=== PATIENT | male | born 1950 | race Caucasian/White ===

== ENCOUNTER 2017-07-16 13:48 | Outpatient (CLI) | payer MEDICARE, OTHER | END 2017-07-16 13:49 | disposition home or self-care (01) | LOC: SC 13:48 | PROVIDERS: ATTEND Internal Medicine Pulmonary Disease | DX: G47.33 Obstructive sleep apnea (adult) (pediatric) (principal) | CPT/HCPCS: 99203; G0463; 99212 ==

== ENCOUNTER 2017-10-06 06:04 | Outpatient (CLI) | payer MEDICARE, OTHER | END 2017-10-06 06:05 | disposition critical access hospital (66) | LOC: EMS 06:04 | PROVIDERS: ATTEND Surgery | DX: R55 Syncope and collapse (principal); R07.9 Chest pain, unspecified; R06.02 Shortness of breath; R53.1 Weakness; S09.93XA Unspecified injury of face, initial encounter; W18.39XA Other fall on same level, initial encounter; Y93.01 Activity, walking, marching and hiking; Y92.009 Unspecified place in unspecified non-institutional (private) residence as the place of occurrence of the external cause | CPT/HCPCS: A0425; A0427 ==

== ENCOUNTER 2017-10-06 06:33 | Emergency (ER) | payer MEDICARE, OTHER ==
[2017-10-06] MEDS ORDERED: IOPAMIDOL-300 100 ML VIAL IVP ONE ×2 (06:34→09:27)
[2017-10-06 07:01] LABS: BASOPHILS # (AUTO) 0.1 10^3/uL (0.0-0.1); BASOPHILS % (AUTO) 0.7 %; EOSINOPHILS # (AUTO) 0.4 10^3/uL (0.0-0.7); EOSINOPHILS % (AUTO) 2.6 %; HGB - HEMOGLOBIN 13.5 g/dL (14.0-18.0); LYMPHOCYTES # (AUTO) 3.8 10^3/uL (1.5-3.5); LYMPHOCYTES % (AUTO) 24.2 %; MEAN CORPUSCULAR HEMOGLOBIN 28.3 pg (27.0-31.0); MEAN CORPUSCULAR HGB CONC 35.8 g/dL (32.0-36.0); MEAN CORPUSCULAR VOLUME 78.9 fL (80.0-94.0); MEAN PLATELET VOLUME 7.1 fL (7.4-11.4); MONOCYTES # (AUTO) 1.1 10^3/uL (0.0-1.0); MONOCYTES % (AUTO) 6.7 %; NEUTROPHILS # (AUTO) 10.5 10^3/uL (1.5-6.6); NEUTROPHILS % (AUTO) 65.8 %; PLT - PLATELET COUNT 229 10^3/uL (130-450); RED BLOOD COUNT 4.79 10^6/uL (4.70-6.10); RED CELL DISTRIBUTION WIDTH 14.1 % (12.0-15.0); WHITE BLOOD COUNT 15.9 x10^3/uL (4.8-10.8)
[2017-10-06] MEDS ORDERED: SODIUM CHLORIDE 0.9% 500 ML IV ONE (07:03)
[2017-10-06] MEDS ORDERED: SODIUM CHLORIDE 0.9% 2,000 ML IV ONE (07:11)
[2017-10-06 07:14] LABS: CALCIUM 8.8 mg/dL (8.5-10.3); CREATININE 1.7 mg/dL (0.6-1.2)
[2017-10-06] MEDS ORDERED: cefTRIAXone 1 GM in SODIUM CHLORIDE 0.9% MINIBAG 100 ML IV STA (07:14)
[2017-10-06] MEDS ORDERED: AZITHROMYCIN INJ 500 MG in SODIUM CHLORIDE 0.9% 250 ML IV STA (07:15)
--- NOTE | 2017-10-06 07:15 | ED Physician Documentation ---
History of Present Illness - Stated complaint Stated Complaint: SYNCOPE - Chief complaint Chief Complaint: Neuro - Additonal information Additional information: hx from [facility] and pt EMS brought pt prior to my shift so i did not hear report and there is no EMS run sheet scanned in to review 67 male pmhx DM gastric bypass HTN HLD sleep apnea ill for a week with a bad cough denies fever chills NVD bloody black BM and urinary sx this AM had to have a BM and was walking to bathroom and felt faint and had a syncopal episode and fell striking his face now has lip lac LARKIN neck pain and chest pain is tachycardic tachypneic hypothermic and hypoxic Review of Systems Constitutional: reports: Fatigue. denies: Fever, Chills Cardiac: reports: Chest pain / pressure. denies: Palpitations Respiratory: reports: Cough. denies: Dyspnea GI: denies: Abdominal Pain, Nausea, Vomiting, Diarrhea, Bloody / black stool : denies: Dysuria Musculoskeletal: reports: Neck pain Neurologic: reports: Generalized weakness, Syncope, Headache, Head injury Endocrine: denies: Easy bruising / bleeding Immunocompromised: denies: Immunocompromised PD PAST MEDICAL HISTORY - Past Medical History Past Medical History: Yes Cardiovascular: Hypertension, High cholesterol Respiratory: None, Sleep apnea, CPAP use Neuro: None Endocrine/Autoimmune: Type 2 diabetes GI: None : None HEENT: None Psych: None Musculoskeletal: None Derm: None - Past Surgical History Past Surgical History: Yes - Allergies Allergies/Adverse Reactions: Allergies Allergy/AdvReac Type Severity Reaction Status Date / Time No Known Drug Allergies Allergy Verified 10/06/17 06:43 - Social History Does the pt smoke?: No Smoking Status: Never smoker Does the pt drink ETOH?: No Does the pt have substance abuse?: No - Immunizations Immunizations are current?: Yes PD ED PE NORMAL - Vitals Vital signs reviewed: Yes - General General: Alert and oriented X 3 - HEENT HEENT: PERRL. 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, No motor deficit Eye Opening: Spontaneous Motor: Obeys Commands Verbal: Oriented GCS Score: 15 Results - Vitals Vitals: Vital Signs - 24 hr 10/06/17 10/06/17 10/06/17 06:36 07:05 08:30 Temperature 35.3 C L Heart Rate 129 H 122 H 120 H Respiratory 25 H 28 H 26 H Rate Blood Pressure 138/125 H 112/69 111/73 O2 Saturation 84 L 98 98 10/06/17 10/06/17 10/06/17 09:16 10:06 10:45 Temperature Heart Rate 117 H 112 H 109 H Respiratory 28 H 28 H 23 Rate Blood Pressure 107/80 116/105 H 92/68 O2 Saturation 98 97 97 10/06/17 10/06/17 10/06/17 11:34 13:13 13:55 Temperature Heart Rate 104 H 100 86 Respiratory 33 H 28 H 22 Rate Blood Pressure 105/78 119/86 H 110/88 H O2 Saturation 100 99 98 Oxygen O2 Source Oxymask - EKG (time done) 0644 Rate: Rate (enter#) (127) Rhythm: Sinus tachycardia (vs junctional) [place]: Normal Intervals: Wide QRS (borderline) Ischemia: Q waves (inf and ant) - Labs Labs: Laboratory Tests 10/06/17 10/06/17 10/06/17 06:50 06:50 06:50 WBC 15.9 H RBC 4.79 Hgb 13.5 L Hct 37.8 L MCV 78.9 L MCH 28.3 MCHC 35.8 RDW 14.1 Plt Count 229 MPV 7.1 L Neut # 10.5 H Lymph # 3.8 H Bullitt # 1.1 H Eos # 0.4 Baso # 0.1 Absolute Nucleated RBC 0.00 Nucleated RBC % 0.0 D-Dimer Sodium 136 Potassium 3.6 Chloride 99 L Carbon Dioxide 19 L Anion Gap 18.0 H BUN 25 H Creatinine 1.7 H Estimated GFR (MDRD) 41 L Glucose 322 H Lactic Acid Calcium 8.8 Troponin I Influenza A (Rapid) Negative Influenza B (Rapid) Negative Influenza Types A,B Ag - 10/06/17 10/06/17 10/06/17 06:50 07:15 08:57 WBC RBC Hgb Hct MCV MCH MCHC RDW Plt Count MPV Neut # Lymph # Bullitt # Eos # Baso # Absolute Nucleated RBC Nucleated RBC % D-Dimer Sodium Potassium Chloride Carbon Dioxide Anion Gap BUN Creatinine Estimated GFR (MDRD) Glucose Lactic Acid 2.9 H Calcium Troponin I 0.11 0.19 Influenza A (Rapid) Influenza B (Rapid) Influenza Types A,B Ag 10/06/17 08:57 WBC RBC Hgb Hct MCV MCH MCHC RDW Plt Count MPV Neut # Lymph # Bullitt # Eos # Baso # Absolute Nucleated RBC Nucleated RBC % D-Dimer > 1050.0 H Sodium Potassium Chloride Carbon Dioxide Anion Gap BUN Creatinine Estimated GFR (MDRD) Glucose Lactic Acid Calcium Troponin I Influenza A (Rapid) Influenza B (Rapid) Influenza Types A,B Ag - Rads (name of study) CXR Radiology: See rad report (no acute infiltrate) echo Radiology: See rad report (no wall motion abn, enlarged thoracic aort to 4 cm incompletely vis, R heart strain, dilated IVC, no pericardial effusion) CT chest non con Radiology: See rad report (no acute chest process, gallstones) CTPA Radiology: See rad report (deotne PE L > R extending to subsegmental arteries, no saddle embolus, per verbal d/w rad re whether pt needed to be transferred rad advises there is R heart strain, + spetal bowing, slight IVC contrast reflux) PD MEDICAL DECISION MAKING - ED course ED course: pt with cough and meeting SIRS/sepsis criteria lactate and blood cx drawn, given 3 L NS, antibiotic to cover resp infection no infiltrate on CXR but pts only recent sx was cough influenza swabs neg but not very sensitive and there is significant local flu right now so also covered with tamiflu neg CXR with profound hypoxia - sx c/w resp infection such as pna or influenza ( so gave antibiotics and sepsis fluids as work up proceeded) - but clinical findings and CXR do not match with syncope and tachycardia as well, consider alt dx such as PE - no asymmetrical leg swelling to suggest DVT to cause PE, GFR to low for CTA, d dimer would not be appropriate in this setting - CT c spine read indicates jugular distension suggesting right heart strain - increasing suspicion for PE - gave lovenox after CTH neg for bleed pt has CVP - EKG tachy but no acute ischemia, trop # 1 0.11 - needs serial trop and echo (to eval for wall motion abn, eval for cause of syncope, look for signs or R heart strain suggesting PE etc) planned admit to ICU hospitalist kiko rpt trop prior to admit despite tx for sepsis, pna, influenza, possible PE pt worsening still tachy BP dropping now now has inc chest pain and back pain as well asymm BPs noted still hypoxic so got bedside echo in ER - shows no regional wall abn, massive R heart strain, hyperdynamic poorly filling LV, dilated IVC . . . . and a partially visualized enlarged thoracic aorta need CTA to determine if pt has a PE - and if he does if he would benefit from thrombectomy or IR TPA (hesitate to give systemic TPA after fall and head injury ) - and also to eval aorta to see if pt has a CT surgery emergency will simply have to get angio despite low GFR in order to dx and direct subsequent care explained to pt risk to kidneys and critical need for the CT to help dx and thus care for him and he understands and will proceed with CTA radiologist called concerned about the CTA contrast - I explained that the pt is critically ill and rapidly worsening despite all my interventions and that the info from the CT is critically important and that I had discussed with the pt the risks and the need and he agreed to proceed - rad recommend mucomyst 600 PO or IV now, [address] and 12 hr s/p CT - asked pharmacist to enter into [employer] for me also discussed emergent need for CTA with who has arrived - explained risk to kidneys, explained what i was doing to try and mitigate that risk, explained that I truly feel the info from the CT is critical to his care - she understands and also agrees to proceed CT does show deonte PE, per verbal d/w rad with the specific purpose of determining if pt needed transfer for thrombectomy, rads advises there is R heart strain with septal bowing and IVC contrast so will need transfer to tertiary care facility with IR drafter cartographic Dr Milner at [facility] accepts pt pt and family updated numerous times Departure - Departure Disposition: 02 Transfer Acute Care Hosp Clinical Impression: Hypoxia Pulmonary emboli Qualifiers: Pulmonary embolism type: other Chronicity: acute Acute cor pulmonale presence: without acute cor pulmonale Qualified Code(s): I26.99 - Other pulmonary embolism without acute cor pulmonale Hypotension Qualifiers: Hypotension type: unspecified hypotension type Qualified Code(s): I95.9 - Hypotension, unspecified Condition: Fair Discharge Date/Time: 10/06/17 13:55
--- NOTE | 2017-10-06 07:45 | XRAY Report ---
EXAM: CHEST RADIOGRAPHY EXAM DATE: 10/06/2017 07:38 AM. CLINICAL HISTORY: Chest pain left sided. COMPARISON: None. TECHNIQUE: 2 views. FINDINGS: Lungs/Pleura: Large volumes. No focal opacities evident. No pneumothorax or pleural effusion. Mediastinum: Within exam limitations, cardiomediastinal contour is normal. Other: Prior cervical surgery. IMPRESSION: Suspect COPD without acute process seen in the chest. [facility] Referring Provider Line: [phone] SITE ID: [id number]
--- NOTE | 2017-10-06 07:56 | CT Report ---
EXAM: CT HEAD EXAM DATE: 10/06/2017 07:47 AM. CLINICAL HISTORY: Syncope fall and head injury. COMPARISON: None. TECHNIQUE: Multiaxial CT images were obtained from the foramen magnum to the vertex. Reformats: Coron al. IV contrast: None. In accordance with CT protocol optimization, one or more of the following dose reduction techniques w ere utilized for this exam: automated exposure control, adjustment of mA and/or KV based on patient s ize, or use of iterative reconstructive technique. FINDINGS: Parenchyma: No intraparenchymal hemorrhage. No evidence of mass, midline shift or CT findings of acut e infarction. Solomon-white differentiation is distinct. Diffuse mild chronic microangiopathic white mat ter changes are evident. Extraaxial Spaces: Normal for age. No subdural or epidural collections identified. Ventricles: The ventricles and cortical sulci are enlarged, consistent with age-related tissue loss. Sinuses: Imaged paranasal sinuses, orbits, and mastoids show no significant abnormality with a septum moderate right maxillary sinus mucosal thickening. Bones: No evidence of fracture or calvarial defect. Other: None. IMPRESSION: 1. Mild senescent changes without evidence of acute intracranial abnormality. 2. Chronic right maxillary sinusitis. [facility] Referring Provider Line: [phone] SITE ID: [id number]
[2017-10-06] MEDS ORDERED: ENOXAPARIN 100 MG/ML SYRINGE SUBQ STA (07:59)
[2017-10-06] MEDS ORDERED: TETANUS/DIPHTHERIA/PERTUSSIS 0.5 ML SYRINGE IM ONE (08:00)
--- NOTE | 2017-10-06 08:00 | CT Preliminary Report ---
Exam: CT CERVICAL SPINE W/O IMPRESSION: 1. No acute abnormality seen in the cervical spine. 2. Previous anterior fusion of C5-C7. 3. Enlarged internal jugular veins raises question of right heart dysfunction. [facility] SITE ID: [id number]
--- NOTE | 2017-10-06 08:00 | CT Report ---
EXAM: CT CERVICAL SPINE WITHOUT CONTRAST DATE: 10/06/2017 07:47 AM. HISTORY: Fall , head injury, neck pain. COMPARISONS: None. TECHNIQUE: Thin-section axial images were acquired of the cervical spine without contrast. Post-proce ssing: Coronal and sagittal reformats. Other: None. In accordance with CT protocol optimization, one or more of the following dose reduction techniques w ere utilized for this exam: automated exposure control, adjustment of mA and/or KV based on patient s ize, or use of iterative reconstructive technique. FINDINGS: Alignment: No scoliosis or spondylolisthesis. Bones: Previous anterior fusion at C5-C7. No fracture or bone lesion. Interspace Levels/Facets: No acute malalignment. Previous anterior fusion at C5-C7. [id number] C4-C5 disk level degenerative changes. Other: The paravertebral and prevertebral soft tissues are unremarkable. The lung apices are clear. L arge jugular veins. IMPRESSION: 1. No acute abnormality seen in the cervical spine. 2. Previous anterior fusion of C5-C7. 3. Enlarged internal jugular veins raises question of right heart dysfunction. [facility] Referring Provider Line: [phone] SITE ID: [id number]
[2017-10-06] MEDS ORDERED: SODIUM CHLORIDE 0.9% 1,000 ML IV ONE (08:09)
[2017-10-06] MEDS ORDERED: OSELTAMIVIR 75 MG CAPSULE PO STA (08:12)
[2017-10-06] MEDS ORDERED: ONDANSETRON 4 MG/2 ML VIAL IVP STA (08:44)
[2017-10-06] MEDS ORDERED: MORPHINE 2 MG/ML CARPUJECT IVP STA (08:44)
[2017-10-06] MEDS ORDERED: DEXTROSE 5% IV STA (09:16)
[2017-10-06] MEDS ORDERED: ACETYLCYSTEINE IV STA (09:16)
[2017-10-06] MEDS: ENOXAPARIN 100 MG/ML SYRINGE SUBQ STA ×2 (09:19→09:27)
[2017-10-06] MEDS ORDERED: IOPAMIDOL-300 100 ML VIAL ONE (09:19)
--- NOTE | 2017-10-06 09:32 | CT Report ---
EXAM: CT CHEST EXAM DATE: 10/06/2017 08:21 AM. CLINICAL HISTORY: Chest pain. Cough. Hypoxia. COMPARISONS: chest x-ray from earlier today. TECHNIQUE: Routine helical CT imaging was performed through the chest. IV contrast: None. Reconstruct ions: Coronal and sagittal. In accordance with CT protocol optimization, one or more of the following dose reduction techniques w ere utilized for this exam: automated exposure control, adjustment of mA and/or KV based on patient s ize, or use of iterative reconstructive technique. FINDINGS: Lungs/Pleura: Small calcified granuloma in the right upper lobe. No bronchial thickening, consolidati on, or edema. Pulmonary vasculature is normal. No pericardial or pleural effusion. No pneumothorax. Mediastinum: Heart is normal. There is minimal calcification of the aorta and its branches, compatibl e with atherosclerotic disease. No aneurysmal dilatation. No mediastinal lymphadenopathy. Tiny calcif ied lymph nodes are seen in the pretracheal space and right hilar region, compatible with prior granu lomatous disease. Bones: The patient has had anterior fusion of the lower cervical spine. There is DISH within the thor acic spine. No fracture noted. Visualized Abdomen: Gallstones. Pancreas is mildly atrophic. Surgical sutures within the stomach are from prior gastric surgery. Other: None. IMPRESSION: 1. No acute abnormality within the chest. 2. Evidence of prior granulomatous disease. 3. DISH within the thoracic spine. 4. Cholelithiasis. [facility] Referring Provider Line: [phone] SITE ID: [id number]
--- NOTE | 2017-10-06 09:32 | CT Preliminary Report ---
Exam: CT CHEST W/O IMPRESSION: 1. No acute abnormality within the chest. 2. Evidence of prior granulomatous disease. 3. DISH within the thoracic spine. 4. Cholelithiasis. [facility] SITE ID: [id number]
--- NOTE | 2017-10-06 10:53 | CT Preliminary Report ---
Exam: CT CHEST ANGIO (PE) IMPRESSION: 1. Extensive pulmonary emboli as above. 2. Right heart strain. 3. Remainder of exam is unchanged compared to prior noncontrast CT scan from earlier today. GORGEA The above findings were discussed with Dr. Balbuena by Dr. Chel Gallo at 10:45 hrs on 10/06/17. SITE ID: [id number]
--- NOTE | 2017-10-06 10:53 | CT Report ---
EXAM: CT ANGIOGRAM CHEST EXAM DATE: 10/06/2017 10:04 AM. CLINICAL HISTORY: Chest pain. Shortness of breath. Tachycardic. Back pain. Hypotensive. Concern for P E. COMPARISON: noncontrast CT of the chest today TECHNIQUE: Routine helical imaging was performed through the chest in the pulmonary arterial phase. I V Contrast: 80 cc of Isovue-300. Reconstructions: Coronal 3-D MIP reconstructions.Sagittal and vazquez l. The patient's GFR is 41 with creatinine of 1.7. I discussed with Dr. Balbuena the high risk of nephroto xicity given the low GFR. She is highly concerned about this patient and insists that the CT scan mus t be done. She as discussed with the patient the risk of nephrotoxicity. I explained that we will red uce the dose of contrasted for her department to provide adequate hydration and Mucomyst to reduce ri sk of nephrotoxicity. In accordance with CT protocol optimization, one or more of the following dose reduction techniques w ere utilized for this exam: automated exposure control, adjustment of mA and/or KV based on patient s ize, or use of iterative reconstructive technique. FINDINGS: Pulmonary Arteries: Diagnostic quality: Adequate through the segmental arteries. There are extensive bilateral pulmonary arterial system, slightly greater on the left. Pulmonary emboli are seen in the right middle lobar an d right lower lobe are pulmonary arteries extending into the segmental arteries. Pulmonary emboli are seen throughout the left arterial system including the lobar and many of the segmental pulmonary art eries. There is right heart strain as the right ventricle is larger than the left ventricle. There is mild s eptal bowing. There is reflux of contrast in the IVC. Lungs/Pleura: Small calcified granuloma in the right upper lobe. No consolidation or edema. No effusi ons or pneumothorax. Mediastinum: No cardiac enlargement or adenopathy. Calcified mediastinal lymph nodes. Small amount of gas within the venous system, likely from injection. Thoracic Aorta: Aorta is not opacified with contrast. Unopacified appearance is unremarkable. Mild ao rtic calcifications are consistent with atherosclerotic disease. Upper Abdomen: Unchanged. Other: Bones unchanged. IMPRESSION: 1. Extensive pulmonary emboli as above. 2. Right heart strain. 3. Remainder of exam is unchanged compared to prior noncontrast CT scan from earlier today. [facility] The above findings were discussed with Dr. Balbuena by Dr. Chel Gallo at 10:45 hrs on 10/06/17. Referring Provider Line: [phone] SITE ID: [id number]
[2017-10-06 13:55] VITALS: BP 110/88
== END 2017-10-06 13:55 | disposition short-term general hospital (02) ==
LOC: EDUNIT# → ED 06:33
DX: I26.99 Other pulmonary embolism without acute cor pulmonale (principal); I95.9 Hypotension, unspecified; R09.02 Hypoxemia; S01.511A Laceration without foreign body of lip, initial encounter; E11.9 Type 2 diabetes mellitus without complications; I10 Essential (primary) hypertension; E78.5 Hyperlipidemia, unspecified; Z98.84 Bariatric surgery status; G47.30 Sleep apnea, unspecified; W18.30XA Fall on same level, unspecified, initial encounter; Z23 Encounter for immunization
CPT/HCPCS: 36415; 70450; 71046; 71250; 71275; 72125; 80048; 83605; 84484; 85025; 85379; 87040; 87275; 87276; 90471; 90715; 93005; 93306; 96361; 96365; 96367; 96372; 96375; 99284; 99285; A9270; J0132; J1650; Q9967

== ENCOUNTER 2017-10-06 13:56 | Outpatient (CLI) | payer MEDICARE, OTHER | END 2017-10-06 13:57 | disposition short-term general hospital (02) | LOC: EMS 13:56 | PROVIDERS: ATTEND Surgery | DX: I26.99 Other pulmonary embolism without acute cor pulmonale (principal) | CPT/HCPCS: A0170; A0425; A0426 ==

== ENCOUNTER 2017-10-15 19:30 | Outpatient (CLI) | payer MEDICARE, OTHER | END 2017-10-15 19:31 | disposition home or self-care (01) | LOC: SC 19:30 | PROVIDERS: ATTEND Internal Medicine Pulmonary Disease | DX: Z53.9 Procedure and treatment not carried out, unspecified reason (principal) ==

== ENCOUNTER 2017-11-23 22:18 | Outpatient (CLI) | payer MEDICARE, OTHER | END 2017-11-23 22:19 | disposition home or self-care (01) | LOC: SC 22:18 | PROVIDERS: ATTEND Internal Medicine Pulmonary Disease | DX: G47.33 Obstructive sleep apnea (adult) (pediatric) (principal); G47.61 Periodic limb movement disorder | CPT/HCPCS: 95810 ==

== ENCOUNTER 2017-12-16 14:15 | Outpatient (CLI) | payer MEDICARE, OTHER | END 2017-12-16 14:16 | disposition home or self-care (01) | LOC: SC 14:15 | PROVIDERS: ATTEND Nurse Practitioner Family | DX: G47.33 Obstructive sleep apnea (adult) (pediatric) (principal) | CPT/HCPCS: 99214; G0463; 99212 ==

== ENCOUNTER 2018-02-19 13:02 | Outpatient (CLI) | payer MEDICARE, OTHER | END 2018-02-19 13:03 | disposition home or self-care (01) | LOC: SC 13:02 | PROVIDERS: ATTEND Nurse Practitioner Family | DX: G47.33 Obstructive sleep apnea (adult) (pediatric) (principal) | CPT/HCPCS: 99213; G0463; 99212 ==

== ENCOUNTER 2021-03-22 08:16 | Outpatient (CLI) | payer MEDICARE, OTHER ==
--- NOTE | 2021-03-22 09:36 | SLEEP CARE CONSULTATION ---
Information from patient questionnaire entered by Chelsie Colin. I have reviewed and concur with the information entered by Chelsie Colin. This document represents the service I personally performed and the decisions made by , Lora Prasad ARNP. History of Present Illness Service Date and Time: 03/22/2021 0816 Previous diagnosis: Moderate, Obstructive Sleep Apnea-Hypopnea Syndrome AHI: 28.2 (in 2018) Reason for follow up: annual (last seen 10/2019) Equipment type: CPAP Equipment obtained from: [facility] (getting supplies as needed) Mask style: Full face Mask brand: Resmed (Air fit) Backup mask available: Yes (old mask) Prior sleep studies: Yes Year and Where: 2017 - [facility]; 2001 - [facility] additional information: M[facility]ENDLE[facility] SR was diagnosed to have moderate, AHI 28.2, obstructive sleep apnea-hypopnea syndrome and returned today [with spouse ][with partner ]for [CPAP] therapy [annual] follow-up. CPAP Compliance Data - Data Reviewed with Patient Average duration of nightly device use: 8 hr 37 min Compliance rate %: 99 (180 days) Current pressure setting (cmH2O): 4-20 Humidity settin Average residual AHI: 0.7 Subjective Patient concerns: reports: nasal congestion (once in a while, has allergies), dry mouth, nose, throat (sometimes; not a big issue), other (machine surges when first uses; bursts of air). denies: aerophagia, mask discomfort, air blowing in eyes, mask leak noise, condensation in mask/hose, epistaxis Observed to snore while using device: No Current pressure setting perceived as: comfortable On therapy, patient: reports: sleeping better, awakening more refreshed, being more awake and alert during the day, more rested overall. denies: drowsiness while driving Initial [place] Sleepiness Scale score: 14 (in 2017) Current [place] Sleepiness Scale score: 17 Allergies and Home Medications Home medication list reviewed: Yes (no changes) Review of Systems Review of systems same as previous: Yes (no changes) Physical Exam Heart Rate: 49 O2 Saturation: 97 Height: 6 ft 2 in Weight: 310 lb Body Mass Index: 39.8 BMI Classification: Obese Impression and Plan 1. Obstructive Sleep Apnea-Hypopnea Syndrome, moderate, with good treatment compliance and excellent apnea control. On CPAP therapy, the patient has better sleep quality and is more rested overall. Patient seen states that he has occasional nasal congestion from allergies as well as dry mouth but these are not overly concerning. His main concern is that his machine when he first puts it on at night will give him some notable bursts of high pressure before it settles down for the night. It has only been happening for a few months. I will write to have his machine serviced to see if there is an adjustment that needs to be made. Patient's apnea severity and rationale for treatment to reduce apnea, improve sleep quality and reduce cardiovascular and cerebrovascular events was reviewed. I also reviewed the benefit of consistent device use of CPAP for hypertension, arrhythmia, and diabetes. Patient has lost weight and then regained it. He states he is very busy and has not had a lot of time to concentrate on his weight loss. He just moved his 93-year-old mother and with him and she keeps him very busy. I advised him to concentrate on eating more nutritious foods. He voiced understanding. * Continue autoCPAP pressure at 4-20 cmH2O * Service machine * Notify me if snoring with mask or feeling that the pressure is too much or too little * Attempt to lose weight * Call this office if any problems using CPAP * Return for follow up in 1 year, or sooner if concerns arise Counseling Topics: Spare mask, Weight loss health impact Follow up with Sleep Care in: 6 months Follow up with: Neurologist Visit Type: In Office Time Spent with Patient (minutes): 14 Provider Statement: I spent 100% of the Face to Face Visit with the patient with greater than 50% spent counseling the patient and coordination of care.
== END 2021-03-22 08:17 | disposition home or self-care (01) ==
LOC: SC 08:16
PROVIDERS: ATTEND Nurse Practitioner Family
DX: G47.33 Obstructive sleep apnea (adult) (pediatric) (principal); Z68.39 Body mass index [BMI] 39.0-39.9, adult
CPT/HCPCS: 99212; G0463

== ENCOUNTER 2022-06-08 08:47 | Outpatient (CLI) | payer MEDICARE, OTHER ==
[2022-06-08 09:14] VITALS: BP 132/74
--- NOTE | 2022-06-08 09:14 | SLEEP CARE CONSULTATION ---
Information from patient questionnaire entered by Marco Harden. I have reviewed and concur with the information entered by Marco Hraden. This document represents the service I personally performed and the decisions made by me, Lora Prasad ARNP. History of Present Illness Service Date and Time: 06/08/2022 0847 Previous diagnosis: Moderate, Obstructive Sleep Apnea-Hypopnea Syndrome AHI: 28.2 (in 2018) Reason for follow up: annual (LAST SEEN 03/29) Equipment type: CPAP (RESMED) Equipment obtained from: Other (getting supplies as needed) Mask style: Full face Backup mask available: Yes (old mask) Last cushion change: 2 days ago Prior sleep studies: Yes Year and Where: 2017 - [facility]; 2001 - [facility] HPI additional information: MART PENDLETON SR was diagnosed to have moderate, AHI 28.2, obstructive sleep apnea-hypopnea syndrome and returned today for CPAP therapy annual follow-up. Sleep Study - Results Prior sleep studies: Yes Year and Where: 2017 - [facility]; [facility] - [facility] CPAP Compliance Data - Data Reviewed with Patient Average duration of nightly device use: 8 hours 21 minutes Compliance rate %: 99 (180/180 days used) Current pressure setting (cmH2O): 4-20 Average residual AHI: 0.5 Average large leak: 0.0 L/min Compliance data discussion: A couple of times a night, patient states the pressure will go high and he will wake up. He just turns machine off and then back on and it goes back to regular pressure. He does not want to service the machine right now. Subjective Patient concerns: denies: aerophagia, mask discomfort, air blowing in eyes, mask leak noise, condensation in mask/hose, nasal congestion, dry mouth, nose, throat, epistaxis Observed to snore while using device: Yes (occasionally) Current pressure setting perceived as: comfortable On therapy, patient: reports: sleeping better, awakening more refreshed, being more awake and alert during the day, more rested overall. denies: drowsiness while driving Initial [place] Sleepiness Scale score: 14 (in 2017) Current [place] Sleepiness Scale score: 5 (06/08/22) Allergies and Home Medications Drug allergies reviewed: Yes (NKDA) Home medication list reviewed: Yes (no changes) Allergy and home medication list: Allergies No Known Drug Allergies Allergy (Verified 10/06/17 06:43) Review of Systems Review of systems same as previous: Yes (no changes) Physical Exam Vital signs obtained and entered by: SHAY BANEGAS Blood Pressure: 132/74 (LEFT ARM ) Cuff size: regular Heart Rate: 51 O2 Saturation: 97 Height: 6 ft 2 in Weight: 285 lb Body Mass Index: 36.6 BMI Classification: Obese Impression and Plan 1. Obstructive Sleep Apnea-Hypopnea Syndrome, moderate, with excellent treatment compliance and excellent apnea control. On CPAP therapy, the patient has better sleep quality and is more rested overall. Patient has significant improvement of their sleep apnea and are satisfied with current CPAP therapy. Patient denies problems with oral dryness, nasal congestion, epistaxis, skin irritation or aerophagia. Patient's apnea severity and rationale for treatment to reduce apnea, improve sleep quality and reduce cardiovascular and cerebrovascular events was reviewed. I also reviewed the benefit of consistent device use of CPAP for hypertension, arrhythmia and diabetes. 2. Obesity, unspecified. Currently patients BMI is 36.6. Obesity increases the risk of apnea, CPAP pressure requirements and overall health risks especially cardiovascular and diabetes. Thus patient is advised to lose weight. Weight loss can be done with reducing portion size, reducing refined foods and balancing content with vegetables, fruit and whole grain foods. In addition, patient encouraged to get regular exercise. * Continue auto CPAP pressure at 4-20 cmH2O * Update supplies * Notify me if snoring with mask or feeling that the pressure is too much or too little * Attempt to lose weight * Call this office if any problems using CPAP * Return for follow up in 1 year, or sooner if concerns arise Counseling Topics: Spare mask, Weight loss health impact Visit Type: In Office Time Spent with Patient (minutes): 20 Provider Statement: I spent 100% of the Face to Face Visit with the patient with greater than 50% spent counseling the patient and coordination of care.
== END 2022-06-08 08:48 | disposition home or self-care (01) ==
LOC: SC 08:47
PROVIDERS: ATTEND Nurse Practitioner Family
DX: G47.33 Obstructive sleep apnea (adult) (pediatric) (principal); E66.9 Obesity, unspecified; Z68.36 Body mass index [BMI] 36.0-36.9, adult
CPT/HCPCS: 99213; G0463; 99212

== ENCOUNTER 2023-06-11 08:28 | Outpatient (CLI) | payer MEDICARE, OTHER ==
--- NOTE | 2023-06-11 08:53 | Sleep Patient Instructions ---
Sleep Center Visit Summary - Patient Visit Information Reason for Visit: Annual visit for PAP therapy - Patient Instructions Additional Instructions: You will continue with CPAP therapy with pressure set at 4-20 cmH2O. A supply prescription will be updated with your DME. We are also updating your CPAP, the supply company should call you once they have authorization for your new device. We encourage you to continue to try to lose weight. Please follow up with the sleep care office one month after obtaining new device for compliance visit. - Clinic Information Contact: [facility] [address] [place] [id number] [email or web address] T: [phone]
[2023-06-11 08:57] VITALS: BP 122/63; O2SAT 99
--- NOTE | 2023-06-11 08:57 | SLEEP CARE CONSULTATION ---
Information from patient questionnaire entered by Shameka Luciano. I have reviewed and concur with the information entered by Shameka Luciano. This document represents the service I personally performed and the decisions made by , Lora Prasad ARNP. History of Present Illness Service Date and Time: 06/11/2023827 Previous diagnosis: Moderate, Obstructive Sleep Apnea-Hypopnea Syndrome AHI: 28.2 (in 2018) Reason for follow up: annual (LAST SEEN 05/2022) Equipment type: CPAP (RESMED Airsense 10, s/u 12/2017; SD CARD NEEDED) Equipment obtained from: Other ([facility]; getting supplies as needed) Mask style: Full face Backup mask available: Yes Last cushion change: last week Prior sleep studies: Yes Year and Where: 2017 - [facility]; [facility] HPI additional information: MART PENDLETON SR was diagnosed to have moderate, AHI 28.2, obstructive sleep apnea-hypopnea syndrome and returned today for CPAP therapy annual follow-up. Sleep Study - Results Prior sleep studies: Yes Year and Where: 2017 - [facility]; [facility] CPAP Compliance Data - Data Reviewed with Patient Average duration of nightly device use: 8 hours 13 minutes Compliance rate %: 99 (180/180 days used) Current pressure setting (cmH2O): 4-20 (avg 11.7) Average residual AHI: 0.9 Central apnea: 0.1 Obstructive apnea: 0.2 Hypopnea: 0.5 Average large leak: 0 L/min Subjective Patient concerns: reports: mask leak noise (off/on), nasal congestion, dry mouth, nose, throat (sometimes). denies: aerophagia, mask discomfort, air blowing in eyes, condensation in mask/hose, epistaxis Observed to snore while using device: No Current pressure setting perceived as: comfortable On therapy, patient: reports: sleeping better, awakening more refreshed, being more awake and alert during the day, more rested overall. denies: drowsiness while driving Initial [place] Sleepiness Scale score: 14 (in 2017) Current [place] Sleepiness Scale score: 5 Allergies and Home Medications Known drug allergies: No Drug allergies reviewed: Yes Home medication list reviewed: Yes (no changes) Allergy and home medication list: Allergies No Known Drug Allergies Allergy (Verified 06/10/23 09:28) Review of Systems Review of systems same as previous: Yes (no changes) Physical Exam Vital signs obtained and entered by: LORA WILLIS Blood Pressure: 122/63 Cuff size: wrist (left) Heart Rate: 54 O2 Saturation: 99 Height: 6 ft 2 in Weight: 270 lb 3.2 oz Weight change since last visit: 15 lb loss Body Mass Index: 34.7 BMI Classification: Obese Impression and Plan 1. Obstructive Sleep Apnea-Hypopnea Syndrome, moderate, with good treatment compliance and good apnea control. On CPAP therapy, the patient has better sleep quality and is more rested overall. He has an Airsense 10 that is starting to do a "double pump" of air occasionally that resolves with turning machine off and then back on. The patients CPAP is over 5 years old and of reasonable use. In addition, it is starting to make louder noise, a possible sign of malfunction. Thus, the CPAP will be updated. The new CPAPs also have a better humidity system which could assist control of patients dryness symptoms and nasal congestion. A DWO prescription will be made. Compliance guidelines for new device and follow up discussed. Patient's apnea severity and rationale for treatment to reduce apnea, improve sleep quality and reduce cardiovascular and cerebrovascular events was reviewed. I also reviewed the benefit of consistent device use of CPAP for hypertension, arrhythmia and diabetes. 2. Obesity, unspecified. Currently patients BMI is 34.7. He has lost weight. He has been staying more active at home. Obesity increases the risk of apnea, CPAP pressure requirements and overall health risks especially cardiovascular and diabetes. Thus patient is advised to lose weight. * Continue auto CPAP pressure at 4-20 cmH2O * Update machine * Update supplies * Notify me if snoring with mask or feeling that the pressure is too much or too little * Attempt to lose weight * Call this office if any problems using CPAP * Return for follow up one month after obtaining new device, or sooner if concerns arise Counseling Topics: Spare mask, Weight loss health impact Prescriptions: Auto CPAP, Device supplies Follow up with Sleep Care in: other (for compliance visit) Visit Type: In Office Time Spent with Patient (minutes): 23 Provider Statement: I spent 100% of the Face to Face Visit with the patient with greater than 50% spent counseling the patient and coordination of care.
== END 2023-06-11 08:29 | disposition home or self-care (01) ==
LOC: SC 08:28
PROVIDERS: ATTEND Nurse Practitioner Family
DX: G47.33 Obstructive sleep apnea (adult) (pediatric) (principal); E66.9 Obesity, unspecified; Z68.34 Body mass index [BMI] 34.0-34.9, adult
CPT/HCPCS: 99213; G0463; 99212

== ENCOUNTER 2023-08-29 08:34 | Outpatient (CLI) | payer MEDICARE, OTHER ==
--- NOTE | 2023-08-29 09:45 | Sleep Patient Instructions ---
Sleep Center Visit Summary - Patient Visit Information Reason for Visit: First compliance with new device - Patient Instructions Additional Instructions: You were here for follow up of CPAP therapy. You will be continued on CPAP therapy with pressure at 4-20 cmH2O. You should follow up with sleep care in 12 months. You may contact us sooner for any questions or concerns. - Clinic Information Contact: [facility] [address] [place] [email or web address] T: [phone]
[2023-08-29 09:48] VITALS: BP 115/56; O2SAT 98
--- NOTE | 2023-08-29 09:48 | SLEEP CARE CONSULTATION ---
Information from patient questionnaire entered by Kevin Luciano. I have reviewed and concur with the information entered by Kevin Luciano. This document represents the service I personally performed and the decisions made by me, Lora Prasad ARNP. History of Present Illness Service Date and Time: 08/29/2023 0834 Previous diagnosis: Moderate, Obstructive Sleep Apnea-Hypopnea Syndrome AHI: 28.2 (in 2018) Reason for follow up: first compliance after device update Equipment type: CPAP (RESMED Airsense 11, s/u 06/2023) Equipment obtained from: [employer] (getting supplies as needed) Mask style: Full face Mask brand: Resmed (AirFit F20, medium cushion) Backup mask available: Yes Last cushion change: 2 days ago Prior sleep studies: Yes Year and Where: 2017 - [facility]; [facility] HPI additional information: MART PENDLETON SR was diagnosed to have moderate, AHI 28.2, obstructive sleep apnea-hypopnea syndrome and returned today for CPAP therapy first compliance after updating device follow-up. Sleep Study - Results Prior sleep studies: Yes Year and Where: 2017 - [facility]; [facility] CPAP Compliance Data - Data Reviewed with Patient Average duration of nightly device use: 7 hours 32 minutes Compliance rate %: 70 (30 days used) Current pressure setting (cmH2O): 4-20 Average residual AHI: 2 Central apnea: 0.3 Obstructive apnea: 0.6 Average large leak: 0.5 L/min Subjective Missed days of use due to: reports: other (hip fracture and hospital stay) Patient concerns: reports: dry mouth, nose, throat (3 times a week). denies: aerophagia, mask discomfort, air blowing in eyes, mask leak noise, condensation in mask/hose, nasal congestion, epistaxis Observed to snore while using device: No Current pressure setting perceived as: comfortable On therapy, patient: reports: sleeping better, awakening more refreshed, being more awake and alert during the day, more rested overall. denies: drowsiness wh ile driving Initial [place] Sleepiness Scale score: 14 (in 2017) Current [place] Sleepiness Scale score: 5 (08/29/23) Allergies and Home Medications Known drug allergies: No Drug allergies reviewed: Yes Home medication list reviewed: Yes (no changes) Allergy and home medication list: Allergies No Known Drug Allergies Allergy (Verified 08/28/23 10:12) Home Medications No Known Home Medications 08/28/23 [History Confirmed 08/28/23] Review of Systems Review of systems same as previous: Yes (NO CHANGE) Physical Exam Vital signs obtained and entered by: KEVIN Arredondo MA Blood Pressure: 115/56 (LEFT ARM) Cuff size: regular Heart Rate: 52 O2 Saturation: 98 Height: 6 ft 2 in Weight: 253 lb 6.4 oz Body Mass Index: 32.5 BMI Classification: Obese Impression and Plan 1. Obstructive Sleep Apnea-Hypopnea Syndrome, moderate, with good treatment compliance and good apnea control. On CPAP therapy, the patient has better sleep quality and is more rested overall. Patient has significant improvement of their sleep apnea and is satisfied with current CPAP therapy. He states he gets a little bit of dry mouth a few days a week and we discussed how to adjust his humidity as needed to decrease dryness. He voiced understanding. Patient's apnea severity and rationale for treatment to reduce apnea, improve sleep quality and reduce cardiovascular and cerebrovascular events was reviewed. I also reviewed the benefit of consistent device use of CPAP for hypertension, arrhythmia and diabetes. 2. Obesity, unspecified. Currently patients BMI is 32.5. Obesity increases the risk of apnea, CPAP pressure requirements and overall health risks especially cardiovascular and diabetes. Thus patient is advised to lose weight. * Continue auto CPAP pressure at 4-20 cmH2O * Notify me if snoring with mask or feeling that the pressure is too much or too little * Attempt to lose weight * Call this office if any problems using CPAP * Return for follow up in 12 months, or sooner if concerns arise Counseling Topics: Spare mask, Weight loss health impact Follow up with Sleep Care in: 1 year Visit Type: In Office Time Spent with Patient (minutes): 11 Provider Statement: I spent 100% of the Face to Face Visit with the patient with greater than 50% spent counseling the patient and coordination of care.
== END 2023-08-29 08:35 | disposition home or self-care (01) ==
LOC: SC 08:34
PROVIDERS: ATTEND Nurse Practitioner Family
DX: G47.33 Obstructive sleep apnea (adult) (pediatric) (principal); E66.9 Obesity, unspecified; Z68.32 Body mass index [BMI] 32.0-32.9, adult
CPT/HCPCS: 99212; G0463